=== PATIENT | female | born 1980 | race Caucasian/White ===

== ENCOUNTER 2017-06-25 05:50 | Inpatient (IN) | payer OTHER ==
[2017-06-24 09:38] LABS: BASOPHILS ABSOLUTE AUTO 0.03 K/mm3 (0.00-0.23); BASOPHILS PERCENT AUTO 0 % (0-2); EOSINOPHILS ABSOLUTE AUTO 0.18 K/mm3 (0.00-0.68); EOSINOPHILS PERCENT AUTO 1 % (0-6); Hematocrit 36.3 % (33.0-51.0); Hemoglobin 12.3 g/dL (11.5-16.0); IMMATURE GRAN ABSOLUTE AUTO 0.04 K/mm3 (0.00-0.10); IMMATURE GRAN PERCENT AUTO 0 % (0-1); LYMPHOCYTES ABSOLUTE AUTO 2.45 K/mm3 (0.84-5.20); LYMPHOCYTES PERCENT AUTO 20 % (21-46); MONOCYTES ABSOLUTE AUTO 0.57 K/mm3 (0.16-1.47); MONOCYTES PERCENT AUTO 5 % (4-13); Mean Corpuscular HGB 29.8 pg (26.0-34.0); Mean Corpuscular HGB Conc 33.9 g/dL (31.5-36.5); Mean Corpuscular Volume 88 fL (80-100); Mean Platelet Volume 9.9 fL (9.1-12.4); NEUTROPHILS PERCENT AUTO 74 % (41-73); Platelet Count 300 K/mm3 (150-400); RDW Coefficient Variation 14.6 % (11.7-14.2); RDW Standard Deviation 46.4 fL (35.1-46.3); Red Blood Cell Count 4.13 M/mm3 (3.80-5.20); White Blood Cell Count 12.47 K/mm3 (4.00-11.30)
[~2017-06-25] VITALS: Ht 165.1 cm; Wt 136.0 kg
[~2017-06-25 05:50] MED LIST: Verotin-Gr Cap1 EACH PO
[2017-06-25 08:22] LABS: PCO2 Cord - Venous 45.5 mmHg (40-50); PO2 Cord - Venous 27.9 mmHg (28-32); pH Umbilical Cord - Venous 7.35 (7.26-7.35)
[2017-06-25 08:24] LABS: PCO2 Cord - Arterial 59.7 mmHg (40-50); PO2 Cord - Arterial 21.4 mmHg (16-20); pH Cord - Arterial 7.22 (7.28-7.35)
[2017-06-26 07:18] LABS: Hematocrit 33.1 % (33.0-51.0); Mean Corpuscular HGB 29.6 pg (26.0-34.0); Mean Corpuscular HGB Conc 33.2 g/dL (31.5-36.5); Mean Corpuscular Volume 89 fL (80-100); Mean Platelet Volume 9.7 fL (9.1-12.4); Platelet Count 237 K/mm3 (150-400); RDW Coefficient Variation 14.9 % (11.7-14.2); RDW Standard Deviation 48.1 fL (35.1-46.3); Red Blood Cell Count 3.71 M/mm3 (3.80-5.20); White Blood Cell Count 10.88 K/mm3 (4.00-11.30)
[2017-06-27] MEDS ORDERED: IBUP800 PO (14:45)
[2017-06-27] MEDS ORDERED: Percocet 5-3251 EACH PO (14:45)
== END 2017-06-27 16:35 | disposition home or self-care (01) | DRG 766 ==
LOC: BC 05:50
PROVIDERS: Nurse Practitioner Obstetrics & Gynecology; Obstetrics & Gynecology
PROC: 10D00Z1 Extraction of Products of Conception, Low, Open Approach (ICD-10-PCS; principal; 2017-06-25 07:30)
PROC: 0UT70ZZ Resection of Bilateral Fallopian Tubes, Open Approach (ICD-10-PCS; 2017-06-25 07:30)
DX: O24.420 Gestational diabetes mellitus in childbirth, diet controlled (principal); K21.9 Gastro-esophageal reflux disease without esophagitis; O69.81X0 Labor and delivery complicated by cord around neck, without compression, not applicable or unspecified; O99.62 Diseases of the digestive system complicating childbirth; O34.211 Maternal care for low transverse scar from previous cesarean delivery; Z3A.39 39 weeks gestation of pregnancy; Z37.0 Single live birth; Z79.899 Other long term (current) drug therapy
CPT/HCPCS: 36415; 82803; 82947; 85025; 85027; 86850; 86900; 86901; 88302; J0690; J1885; J2590; J2765; J3010; J7120

== ENCOUNTER 2018-05-20 12:09 | Day surgery (SDC) | payer OTHER ==
[~2018-05-20] VITALS: Ht 165.1 cm; Wt 129.4 kg
[~2018-05-20 12:09] MED LIST changes: +ACETAMINOPHEN500 MG PO; +DOCU100 PO; +IBUP800 PO; +Percocet 5-3251 EACH PO
--- NOTE | 2018-05-20 13:42 | NUR ---
05/20/18 1342 Serafin Zepeda PT DENIES ANYTHING TO DRINK IN STEP DOWN.
== END 2018-05-20 13:35 | disposition home or self-care (01) ==
LOC: ORSCSDS 12:09
PROVIDERS: Internal Medicine Gastroenterology
PROC: 0DB68ZX Excision of Stomach, Via Natural or Artificial Opening Endoscopic, Diagnostic (ICD-10-PCS; principal; 2018-05-20 13:45)
DX: Z01.818 Encounter for other preprocedural examination (principal); K31.7 Polyp of stomach and duodenum; G47.33 Obstructive sleep apnea (adult) (pediatric); E66.01 Morbid (severe) obesity due to excess calories; Z68.42 Body mass index [BMI] 45.0-49.9, adult; F41.8 Other specified anxiety disorders
CPT/HCPCS: 88305; 88342; J7120

== ENCOUNTER → 2020-07-20 | Outpatient (CLI) | payer OTHER | END | disposition home or self-care (01) | LOC: LAB SHORT 17:55 → PLD 17:55 | DX: J35.8 Other chronic diseases of tonsils and adenoids (principal) | CPT/HCPCS: 87081 ==